=== PATIENT | female | born 1970 | race Caucasian/White ===

== ENCOUNTER 2024-02-02 20:09 | Emergency (ER) | payer SELFPAY ==
[~2024-02-02] VITALS: Ht 162.6 cm; Wt 90.7 kg
[2024-02-02] MEDS ORDERED: CYCL5TAB PO (22:09)
[2024-02-02] MEDS ORDERED: methylPREDNISolone SOD SUCC 125 MG/2ML VIAL ONE (22:20)
[2024-02-02] MEDS: methylPREDNISolone SOD SUCC 125 MG/2ML VIAL IM ONE (22:37)
[2024-02-02 22:39] VITALS: BP 124/85; TEMP 97.8; O2SAT 97
== END 2024-02-02 22:41 | disposition home or self-care (01) ==
LOC: ER 20:12
DX: M54.12 Radiculopathy, cervical region (principal); J45.909 Unspecified asthma, uncomplicated; Z79.899 Other long term (current) drug therapy; Z88.2 Allergy status to sulfonamides
CPT/HCPCS: 99284; 96372; 73060; 73030; J2919